=== PATIENT | female | born 1995 | race Caucasian/White ===

== ENCOUNTER 2016-08-17 17:25 | Emergency (ER) | payer SELFPAY ==
[2016-08-17 18:26] LABS: BASOPHILS 0.3 % (0.0-2.0); EOSINOPHILS 2.5 % (0-7); HEMATOCRIT 40.1 % (36.0-48.0); HEMOGLOBIN 13.3 g/dL (12-16); LYMPHOCYTES 31.1 % (15-50); MCH 30.6 pg (26.0-34.0); MCHC 33.2 g/dL (31.0-37.0); MCV 92.2 fL (80.0-100.0); MEAN PLATELET VOLUME 10.7 fL (7.4-10.4); MONOCYTES 7.6 % (2-11); NEUTROPHILS 58.5 % (40-80); PLATELET COUNT 156 10x3/uL (130-400); RBC 4.35 10x6/uL (4.00-5.40); RDW 12.3 % (11.5-14.5); WBC 6.8 10x3/uL (4.8-10.8)
== END 2016-08-17 20:27 | disposition home or self-care (01) ==
LOC: D.ER 17:25
PROVIDERS: Emergency Medicine
DX: N93.9 Abnormal uterine and vaginal bleeding, unspecified (principal); R10.2 Pelvic and perineal pain

== ENCOUNTER 2017-06-28 07:04 | Day surgery (SDC) | payer BC, MEDICAID ==
[2017-06-27 14:40] LABS: BASOPHILS 0.3 % (0-2); HEMATOCRIT 40.5 % (36.0-48.0); HEMOGLOBIN 13.2 g/dL (12-16); IMMATURE GRANULOCYTES 0.2 % (0-5); LYMPHOCYTES 41.2 % (15-50); MCH 30.3 pg (26.0-34.0); MCHC 32.6 g/dL (31.0-37.0); MCV 93.1 fL (80.0-100.0); MEAN PLATELET VOLUME 10.9 fL (7.4-10.4); MONOCYTES 5.9 % (2-11); NEUTROPHILS 47.4 % (40-80); PLATELET COUNT 182 10x3/uL (130-400); RBC 4.35 10x6/uL (4.00-5.40); RDW 12.8 % (11.5-14.5); WBC 6.5 10x3/uL (4.8-10.8)
[2017-06-27 14:56] LABS: CALC OSMOLALITY 279 mosm/kg (275-300); CARBON DIOXIDE 24.3 mmol/L (21.0-32.0); CHLORIDE - SERUM 107 mmol/L (98-107); CREATININE - SERUM 0.9 mg/dL (0.6-1.3); GLUCOSE 78 mg/dL (74-106); POTASSIUM - SERUM 4.1 mmol/L (3.5-5.1); SODIUM 141 mmol/L (136-145); UREA NITROGEN 13 mg/dL (7-18); eGFR NON AFRICAN AMERICAN 85 mL/min (90-120)
[~2017-06-28] VITALS: Ht 160 cm; Wt 77.1 kg
[~2017-06-28 07:04] MED LIST: BUPROPION XL150 MG PO; PRENATAL COMPLE1 TAB PO; TERAZOL 7 VAGIN45 GM VG
[2017-06-28 09:09] VITALS: BP 89/35; Ht 160 cm; Wt 77.1 kg
[2017-06-28 09:09] LABS: HCG URINE NEGATIVE (NEGATIVE)
--- NOTE | 2017-06-28 13:05 | NUR ---
PILLOWS FOR PADS UNDER CHEST, ABDOMEN, KNEES AND LOWER LEGS
[2017-06-28] MEDS ORDERED: HYDROCODONE-APA1 TAB PO (13:22)
--- NOTE | 2017-06-28 14:02 | NUR ---
HANDING PT OVER TO NEHEMIAS RN IN STABLE CONDITION.
--- NOTE | 2017-06-28 15:06 | NUR ---
C/O NAUSA ,ZOFRAN 4 MG IVP SLOW GIVEN
--- NOTE | 2017-06-28 17:19 | NUR ---
1600 FEELING BETTER ,IV DC WITH CATHER TIP INTACT
--- NOTE | 2017-07-19 12:19 | OP ---
PATIENT NAME: APARNA CROWELL MEDICAL RECORD: [id number] :96 LOCATION:D.OPS ADMISSION DATE: SURGEON: JARAD YOUSSEF MD DATE OF OPERATION: 06/28/2017 PREOPERATIVE DIAGNOSES: 1. Pilonidal cyst. 2. Tobacco dependent syndrome. POSTOPERATIVE DIAGNOSES: 1. Pilonidal cyst. 2. Tobacco dependent syndrome. PROCEDURE: Pilonidal cystectomy. SURGEON: Jarad Youssef MD REPORT OF PROCEDURE: The patient was placed in the jackknife prone position and the perianal region was prepped and draped in sterile fashion. There was an area of fluctuance in the superior aspect of the gluteal crease. This was penetrated with a 15 blade and we probed the area with mosquito hemostat. This extended inferiorly for about 2-3 cm. We then opened up the skin in the midline, revealing the pocket with no sign of any purulent material. We then cleaned out the wound bed and removed the cystic cavity using electrocautery. The surrounding fatty tissue appeared to be normal. We treated the area with electrocautery to stop any sort of bleeding. We then marsupialized the wound edges down to the fascia using interrupted 2-0 nylons. The fatty tissue was then treated one last time with electrocautery and then packed with a damp 4x4. COMPLICATIONS: None. CONDITION: Stable. ANESTHESIA: General endotracheal. BLOOD LOSS: Minimal. TRANSINT:[id number] Voice Confirmation ID: [id number] DOCUMENT ID: [id number] JARAD YOUSSEF MD at 1219 CC: BERNADINE ESTEVEZ DO and SHIMA PITTS MD [id number] DICTATION DATE: 06/28/17 1326 EXCAVATION LABORER: 06/28/17 1343 [facility] 06/28/17 [place] [address]
== END 2017-06-28 16:30 | disposition home or self-care (01) ==
LOC: D.OPS 07:04 → D.PAN 12:15 → D.OPS 16:30
PROVIDERS: Surgery
DX: L05.91 Pilonidal cyst without abscess (principal); F17.200 Nicotine dependence, unspecified, uncomplicated; Z01.812 Encounter for preprocedural laboratory examination

== ENCOUNTER 2018-12-30 09:27 | Emergency (ER) | payer OTHER ==
[~2018-12-30] VITALS: Ht 160 cm; Wt 84.1 kg
[~2018-12-30 09:27] MED LIST changes: +HYDROCODONE-APA1 TAB PO
[2018-12-30 09:31] VITALS: Ht 160 cm; Wt 84.1 kg
[2018-12-30] MEDS ORDERED: REQUIP0.25 MG PO (09:34)
[2018-12-30] MEDS ORDERED: PROZAC20 MG PO (09:34)
[2018-12-30 09:59] LABS: APPEARANCE CLEAR (CLEAR); BILIRUBIN NEGATIVE (NEGATIVE); COLOR YELLOW (YELLOW); GLUCOSE NEGATIVE (NEGATIVE); KETONE NEGATIVE (NEGATIVE); NITRITE NEGATIVE (NEGATIVE); PROTEIN NEGATIVE (NEGATIVE); UROBILINOGEN NORMAL (NORMAL)
[2018-12-30 10:13] LABS: BASOPHILS 0.1 % (0-2); EOSINOPHILS 2.3 % (0-7); HEMATOCRIT 45.5 % (36.0-48.0); HEMOGLOBIN 15.9 g/dL (12-16); IMMATURE GRANULOCYTES 0.1 % (0-5); LYMPHOCYTES 10.5 % (15-50); MCH 31.1 pg (26.0-34.0); MCHC 34.9 g/dL (31.0-37.0); MCV 88.9 fL (80.0-100.0); MEAN PLATELET VOLUME 10.4 fL (7.4-10.4); MONOCYTES 4.7 % (2-11); NEUTROPHILS 82.3 % (40-80); PLATELET COUNT 178 10x3/uL (130-400); RBC 5.12 10x6/uL (4.00-5.40); RDW 12.4 % (11.5-14.5); WBC 9.1 10x3/uL (4.8-10.8)
[2018-12-30 10:24] LABS: ALBUMIN 4.2 g/dL (3.4-5.0); ALKALINE PHOSPHATASE 98 U/L (46-116); ALT (SGPT) 32 U/L (10-68); AMYLASE - SERUM 31 U/L (25-115); BILIRUBIN - TOTAL 0.59 mg/dL (0.2-1.3); CALC OSMOLALITY 279 mosm/kg (275-300); CALCIUM 9.1 mg/dL (8.5-10.1); CARBON DIOXIDE 23.3 mmol/L (21.0-32.0); CHLORIDE - SERUM 105 mmol/L (98-107); CREATININE - SERUM 0.9 mg/dL (0.6-1.3); GLUCOSE 100 mg/dL (74-106); LIPASE 86 U/L (73-393); POTASSIUM - SERUM 3.9 mmol/L (3.5-5.1); PROTEIN - SERUM 8.1 g/dL (6.4-8.2); SODIUM 139 mmol/L (136-145); UREA NITROGEN 17 mg/dL (7-18); eGFR NON AFRICAN AMERICAN 83 mL/min (90-120)
[2018-12-30] MEDS ORDERED: ZOFRAN ODT4 MG/UDTAB PO (10:43)
[2018-12-30] MEDS ORDERED: LOMOTIL 2.5-0.1 EAC1 PO (10:43)
[2018-12-30 11:08] VITALS: BP 120/64
== END 2018-12-30 11:08 | disposition home or self-care (01) ==
LOC: D.ER 09:27
PROVIDERS: Family Medicine
DX: A08.4 Viral intestinal infection, unspecified (principal)

== ENCOUNTER → 2020-11-10 08:04 | Outpatient (CLI) | payer OTHER ==
[~2020-11-10 08:04] MED LIST changes: +CELEXA10 MG PO; +CYCLOBENZAPRINE10 MG PO; +GABAPENTIN100 MG PO; +JUNEL FE 1.5 M1 EACH PO; +LEVOFLOXACIN500 MG PO; +LOMOTIL 2.5-0.1 EAC1 PO; +OMEPRAZOLE20 M1 PO; +PROZAC20 MG PO; +REQUIP0.25 MG PO; +TENORMIN25 MG PO; +ZOFRAN ODT4 MG/UDTAB PO
== END | disposition home or self-care (01) ==
LOC: D.HCCECHO 08:04
DX: R00.0 Tachycardia, unspecified (principal)

== ENCOUNTER 2020-11-30 08:54 | Emergency (ER) | payer OTHER ==
[~2020-11-30] VITALS: Ht 160 cm; Wt 95.5 kg
[2020-11-30 08:58] VITALS: Ht 160 cm; Wt 95.5 kg
[2020-11-30 09:25] LABS: BASOPHILS 0.1 % (0-2); EOSINOPHILS 0.1 % (0-7); HEMATOCRIT 41.2 % (36.0-48.0); HEMOGLOBIN 13.8 g/dL (12-16); IMMATURE GRANULOCYTES 0.2 % (0-5); LYMPHOCYTE ABS# 1.87 10x3/uL (1.18-3.74); LYMPHOCYTES 21.9 % (15-50); MCH 30.8 pg (26.0-34.0); MCHC 33.5 g/dL (31.0-37.0); MONOCYTES 5.6 % (2-11); NEUTROPHIL ABS# 6.15 10x3/uL (1.56-6.13); NEUTROPHILS 72.1 % (40-80); PLATELET COUNT 222 10x3/uL (130-400); RBC 4.48 10x6/uL (4.00-5.40); RDW 12.8 % (11.5-14.5); WBC 8.5 10x3/uL (4.8-10.8)
[2020-11-30 09:30] LABS: APTT 28.3 SECONDS (22.8-39.4); INR 1.05 (0.85-1.17); PROTIME 12.6 SECONDS (11.6-15.0)
[2020-11-30 09:51] LABS: CALC OSMOLALITY 278 mosm/kg (275-300); CALCIUM 9.1 mg/dL (8.5-10.1); CARBON DIOXIDE 28.9 mmol/L (21.0-32.0); CHLORIDE - SERUM 103 mmol/L (98-107); GLUCOSE 104 mg/dL (74-106); POTASSIUM - SERUM 4.1 mmol/L (3.5-5.1); SODIUM 140 mmol/L (136-145); UREA NITROGEN 13 mg/dL (7-18); eGFR NON AFRICAN AMERICAN 72 mL/min (90-120)
[2020-11-30 10:09] LABS: ALBUMIN 3.6 g/dL (3.4-5.0); ALKALINE PHOSPHATASE 66 U/L (30-120); ALT (SGPT) 33 U/L (10-68); BILIRUBIN - TOTAL 0.24 mg/dL (0.2-1.3); CKMB 0.6 U/L (0.0-3.6); CREATINE KINASE 58 UL (21-215); MAGNESIUM - SERUM 1.9 mg/dL (1.8-2.4); PROTEIN - SERUM 7.6 g/dL (6.4-8.2); TROPONIN-I < 0.017 ng/mL (0.000-0.060)
[2020-11-30 11:01] VITALS: BP 107/46
== END 2020-11-30 11:26 | disposition home or self-care (01) ==
LOC: D.ER 08:54
PROVIDERS: Family Medicine
DX: R07.9 Chest pain, unspecified (principal); R00.1 Bradycardia, unspecified; Z53.20 Procedure and treatment not carried out because of patient's decision for unspecified reasons

== ENCOUNTER → 2020-12-17 12:15 | Outpatient (CLI) | payer OTHER ==
[2020-11-30 08:58] VITALS: BMI 37.2
[2020-12-17 12:40] LABS: BASOPHILS 0.3 % (0-2); EOSINOPHILS 2.9 % (0-7); HEMOGLOBIN 13.7 g/dL (12-16); IMMATURE GRANULOCYTES 0.3 % (0-5); LYMPHOCYTE ABS# 2.95 10x3/uL (1.18-3.74); LYMPHOCYTES 42.2 % (15-50); MCH 30.8 pg (26.0-34.0); MCHC 33.4 g/dL (31.0-37.0); MCV 92.1 fL (80.0-100.0); MEAN PLATELET VOLUME 10.3 fL (7.4-10.4); MONOCYTES 6.6 % (2-11); NEUTROPHIL ABS# 3.34 10x3/uL (1.56-6.13); NEUTROPHILS 47.7 % (40-80); PLATELET COUNT 228 10x3/uL (130-400); RBC 4.45 10x6/uL (4.00-5.40)
[2020-12-17 12:45] LABS: ANION GAP 8.4 mmol/L (8-16); CALCIUM 9.1 mg/dL (8.5-10.1); CARBON DIOXIDE 27.4 mmol/L (21.0-32.0); CREATININE - SERUM 1.1 mg/dL (0.6-1.3); POTASSIUM - SERUM 3.8 mmol/L (3.5-5.1)
== END | disposition home or self-care (01) ==
LOC: D.LAB 12:15
PROVIDERS: ATTEND Surgery
DX: D17.0 Benign lipomatous neoplasm of skin and subcutaneous tissue of head, face and neck (principal)

== ENCOUNTER → 2021-01-07 08:50 | Outpatient (CLI) | payer OTHER ==
[2020-11-30 08:58] VITALS: BMI 37.2
== END | disposition home or self-care (01) ==
LOC: D.US 08:50
PROVIDERS: ATTEND Surgery
DX: R22.1 Localized swelling, mass and lump, neck (principal)

== ENCOUNTER 2021-01-20 08:12 | Day surgery (SDC) | payer OTHER ==
[~2021-01-20] VITALS: Ht 160 cm; Wt 93.0 kg
--- NOTE | ~2021-01-20 | OP ---
PATIENT NAME: APARNA CROWELL MEDICAL RECORD: [id number] :96 LOCATION:D.OPS ADMISSION DATE: SURGEON: JARAD YOUSSEF MD DATE OF OPERATION: 01/20/2021 PREOPERATIVE DIAGNOSES: 1. Back lipoma. 2. Tobacco dependence syndrome. POSTOPERATIVE DIAGNOSES: 1. Back lipoma. 2. Tobacco dependence syndrome. PROCEDURE: Excision of 10 cm back lipoma. SURGEON: Jarad Youssef MD DESCRIPTION OF PROCEDURE: The patient was placed in the left lateral decubitus position and the upper back was prepped and draped in sterile fashion. There was thickening to the fatty tissue on the upper back in the location of what we think for a buffalo hump. The area was marked with a 7 cm incision transversely over the mass. A 15 blade was used to make a 7 cm incision over the mass and electrocautery was used to dissect through the subcutaneous tissue. We continued this dissection all the way down to the fascia. The fatty tissue was thickened underneath the Jaison's. I went ahead and just elevated the subcutaneous tissues under Jaison's and excised the firm fatty tissue that was underlying this all the way down to the fascia. This ended up being about 10 cm wide and about 8 cm long. The depth of it was about 2 to 3 cm. Once we had this completely excised, it was sent off for permanent specimen. I inspected the area for any signs of bleeding. The wound was then irrigated out thoroughly with normal saline. A 10 round Boy drain was inserted into the subcutaneous pouch. The subcutaneous tissues were then infused with 20 mL of 0.25% Marcaine with epinephrine. The subcutaneous tissues were then reapproximated with multiple interrupted 3-0 Vicryl. The skin was closed with running subcutaneous 5-0 Monocryl and dressed appropriately. COMPLICATIONS: None. CONDITION: Stable. ANESTHESIA: General endotracheal and local. BLOOD LOSS: Minimal. TRANSINT:[id number] Voice Confirmation ID: [id number] DOCUMENT ID: [id number] JARAD YOUSSEF MD CC: BERNADINE ESTEVEZ [id number] DICTATION DATE: 01/20/21 1216 FINANCIAL AID ADMINISTRATOR: 01/20/21 1244 [facility] [address] [place] [address]
[~2021-01-20 08:12] MED LIST changes: +BUPROPION HCL150 M1; +CARDIZEM120 MG
[2021-01-20 08:35] LABS: BASOPHILS 0.5 % (0-2); EOSINOPHILS 3.1 % (0-7); HEMATOCRIT 40.6 % (36.0-48.0); HEMOGLOBIN 13.5 g/dL (12-16); LYMPHOCYTES 30.2 % (15-50); MCH 30.3 pg (26.0-34.0); MCHC 33.3 g/dL (31.0-37.0); MCV 91.2 fL (80.0-100.0); MEAN PLATELET VOLUME 7.7 fL (7.4-10.4); MONOCYTES 7.9 % (2-11); NEUTROPHILS 58.3 % (40-80); PLATELET COUNT 210 10x3/uL (130-400); RBC 4.45 10x6/uL (4.00-5.40); RDW 13.2 % (11.5-14.5)
[2021-01-20 08:43] LABS: CALC OSMOLALITY 281 mosm/kg (275-300); CALCIUM 9.1 mg/dL (8.5-10.1); CARBON DIOXIDE 26.7 mmol/L (21.0-32.0); CHLORIDE - SERUM 108 mmol/L (98-107); CREATININE - SERUM 0.9 mg/dL (0.6-1.3); GLUCOSE 98 mg/dL (74-106); SODIUM 142 mmol/L (136-145); UREA NITROGEN 9 mg/dL (7-18); eGFR NON AFRICAN AMERICAN 81 mL/min (90-120)
[2021-01-20 08:50] LABS: HCG SERUM NEGATIVE (NEGATIVE)
[2021-01-20 09:28] VITALS: BP 114/48; Ht 160 cm; Wt 93.0 kg
[2021-01-20] MEDS ORDERED: HYDROCODON-ACE1 EA10 PO (12:08)
--- NOTE | 2021-01-20 15:02 | NUR ---
1455 DENIES PROBLEMS, HAS HAD DRAIN INSTRUCTIONS AND VOICED UNDERSTANDING, IS DRESSED, REVIEWED DC INSTS. RELEASED IN WC.
== END 2021-01-20 14:55 | disposition home or self-care (01) ==
LOC: D.OPS 08:12
PROVIDERS: Anesthesiology; ATTEND Surgery
DX: D17.1 Benign lipomatous neoplasm of skin and subcutaneous tissue of trunk (principal); F17.200 Nicotine dependence, unspecified, uncomplicated